=== PATIENT | male | born 1950 | race Hispanic/Latino ===

== ENCOUNTER 2017-12-31 07:39 | Day surgery (SDC) | payer MEDICARE, BC ==
[2017-12-25 15:03] VITALS: BMI 28.5
[2017-12-31 08:07] LABS: BASO # 0.03 K/mm3 (0.0-2.0); BASO % 0.5 % (0.0-3.0); EOS # 0.3 (0.0-0.7); EOS % 4.5 % (1.5-5.0); GRAN # 3.3 (1.4-6.5); GRAN % 59.8 % (50.0-68.0); HEMOGLOBIN 14.1 g/dL (14.0-18.0); LYMPH # 1.4 (1.2-3.4); LYMPH % 25.4 % (22.0-35.0); MEAN CELL VOLUME 88.1 fl (80.0-105.0); MEAN CORPUSCULAR HEMOGLOBIN 29.9 pg (25.0-35.0); MEAN CORPUSCULAR HGB CONC 33.9 g/dl (31.0-37.0); MEAN PLATELET VOLUME 10.8 fl (7.0-11.0); MONO # 0.5 (0.1-0.6); MONO % 9.8 % (1.0-6.0); RBC 4.72 10^6/uL (3.5-6.1); RED CELL DISTRIBUTION WIDTH 13.9 % (11.5-14.5); WHITE BLOOD COUNT 5.5 10^3/ul (4.5-11.0)
[2017-12-31 08:17] LABS: BLOOD UREA NITROGEN 17 mg/dL (7-21); CALCIUM 9.7 mg/dL (8.4-10.5); GFR AFRICAN-AMERICAN > 60; GFR NON-AFRICAN AMERICAN > 60
[2017-12-31] MEDS ORDERED: Lidocaine 2% Inj (20ml) ONE (08:47)
[2017-12-31] MEDS ORDERED: Iohexol 350mgl/ml 50 ML ONE (08:48)
[2017-12-31] MEDS ORDERED: Phenylephrine 10 mg/ml Inj ONE (08:48)
[2017-12-31] MEDS ORDERED: Iodixanol 320 MG/ML 100 ML BOTTLE IV ONE (08:49)
[2017-12-31] MEDS ORDERED: Iodixanol 320 MG/ML 200 ML BOTTLE IV ONE (08:49)
[2017-12-31 08:57] LABS: INR 1.04 (0.93-1.08)
[2017-12-31] MEDS ORDERED: Midazolam 2 MG/2 ML VIAL ONE ×2 (09:24→09:40)
[2017-12-31] MEDS ORDERED: Sodium Chloride 0.9% 1,000 ML IV SCH (10:00)
[2017-12-31 10:36] VITALS: RESP 20; TEMP 97.6
--- NOTE | 2017-12-31 11:21 | CARD ---
APPROVED REPORT EKG Measurement Heart [id number] <Conclusion> Sinus rhythm with marked sinus arrhythmia with premature atrial complexes Right bundle branch block Abnormal ECG
--- NOTE | 2017-12-31 12:20 | CARDCATH ---
PROCEDURE DATE: 12/31/2017 HISTORY: The patient is a 67-year-old male with multiple cardiac risk factors who presents with angina. A stress test was abnormal. The patient has had documented diffuse atherosclerosis in the past. PROCEDURE: Left heart catheterization with coronary arteriography and left ventriculogram. The right femoral artery was cannulated with a 6-[place] sheath. There were no complications. I performed moderate sedation which included the presence of an independent trained observer that assisted in monitoring the patient's level of consciousness and physiologic status. After administration of Versed and fentanyl, my intra-service time was 15 minutes. The findings on catheterization revealed a left ventricle that was mildly hypokinetic. Estimated ejection fraction is 45%-50%. His coronary anatomy revealed the left main artery was unremarkable. The LAD and diagonal vessels revealed diffuse atherosclerosis without critical lesions. The circumflex artery and obtuse marginal branches revealed diffuse atherosclerosis with an AV groove branch of 50%-60% stenosis. The right coronary artery was a dominant vessel and revealed diffuse atherosclerosis with a 50%-60% stenosis in the posterolateral branch. Angio-Seal was used to close the femoral artery site. The patient tolerated the procedure well. In summary, the procedure revealed a 50%-60% stenosis in the distal AV groove branch of circumflex artery as well as a 50%-60% stenosis in the posterolateral branch of the RCA. LV function was mildly hypokinetic with an EF of 45%-50%. Given these findings, the patient's treatment should be medical therapy. He needs to accelerate a cardiac risk reduction program which needs to include an exercise program. I have discussed this with him in detail. Tarun Gao MD
[2017-12-31 15:18] VITALS: O2SAT 95
[2017-12-31 15:20] VITALS: BP 146/89; PULSE 77
== END 2017-12-31 15:30 | disposition home or self-care (01) ==
LOC: CATH 07:39
PROVIDERS: ATTEND Internal Medicine Cardiovascular Disease
DX: I25.119 Atherosclerotic heart disease of native coronary artery with unspecified angina pectoris (principal); E78.00 Pure hypercholesterolemia, unspecified; I10 Essential (primary) hypertension
CPT/HCPCS: 36415; 80048; 85025; 85610; 85730; 86850; 86900; 93005; 93458; 99152; C1760; C1769; C2629; J1644; J2250; J3010; J7030; J7040; Q9966

== ENCOUNTER 2018-08-10 18:46 | Emergency (ER) | payer MEDICARE, BC ==
[2018-08-10 18:48] VITALS: BMI 27.1
--- NOTE | 2018-08-10 19:23 | ED PDOC ---
Arrival/HPI - General Chief Complaint: Cardiac Arrest Historian: Spouse, EMS - Critical Care Critical Care Minutes: Other (35 minutes) - History of Present Illness Narrative History of Present Illness (Text): 08/10/18 18:48 68 M with PMHx of hypertension brought in to the Emergency department by ambulance for cardiac arrest witnessed by , bystander performed CPR. As per , patient was driving when he pulled over to the side since he was not feeling well and that is when he went into cardiac arrest. states patient only complained of a headache earlier today while shopping, otherwise no other complaints. states pt has no cardiac history, but multiple family members have had "heart attacks". Patient arrived with IO in left tibia, in asystole, pupils were equal but were not reactive. Pt was given amiodarone in field and intubated. Rhythm check consistently asystole up until time of at 19:16. 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 since he was not feeling well) Past Medical History - Infectious Disease Hx of Infectious Diseases: None - Cardiac Hx Pacemaker: No - Pulmonary Hx Chronic Obstructive Pulmonary Disease (COPD): Yes - Neurological Hx Paralysis: No - Hematological/Oncological Hx Blood Transfusions: No Hx Blood Transfusion Reaction: No - Musculoskeletal/Rheumatological Hx Musculoskeletal Disorders: Yes (ARTHRITIS TO KNEES, NECK, BACK & WRISTS) - Psychiatric Hx Emotional Abuse: No Hx Physical Abuse: No Hx Substance Use: No - Surgical History Hx Cardiac Catheterization: Yes - Anesthesia Hx Anesthesia Reactions: No Hx Malignant Hyperthermia: No - Suicidal Assessment Feels Threatened In Home Enviroment: No Family/Social History Family/Social History: CAD/VT ( noted multiple family members have had cardiac arrests) Smoking Status: Never Smoked Hx Alcohol Use: Yes (SOCIALLY) Hx Substance Use: No Allergies/Home Meds Allergies/Adverse Reactions: Allergies No Known Allergies Allergy (Verified 12/25/17 14:56) Home Medications: Home Meds Medication Instructions Recorded Confirmed Montelukast [Singulair] 10 mg PO HS 11/17/14 12/31/17 Esomeprazole Magnesium [Nexium] 20 mg PO QAM 11/18/14 12/31/17 Desloratadine [Clarinex] 5 mg PO QAM 11/15/15 12/31/17 Fluticasone Nasal [Flonase] 2 spr NS DAILY 11/15/15 12/31/17 Tamsulosin [Flomax] 0.4 mg PO QPM 11/15/15 12/31/17 Mometasone/Formoterol [Dulera 100 2 inh IH BID 11/28/15 12/31/17 Mcg/5 Mcg Inhaler] Valsartan [Diovan] 80 mg PO QAM 06/26/16 12/31/17 Tiotropium [place] Inhaler 1 inhaler INH DAILY 10/22/16 12/31/17 [Spiriva Inhalation Handihaler Device] Cholecalciferol (Vitamin D3) 400 unit PO 1200 10/26/16 12/31/17 [Vitamin D-400] Multivit-Min/FA/Lycopen/Lutein 1 each PO DAILY 10/26/16 12/31/17 [Centrum Silver Tablet] Cope-3 Fatty Acids [Fish Oil] 400 mg PO DAILY 10/26/16 12/31/17 Ubidecarenone [Co Q-10] 200 mg PO DAILY 10/26/16 12/31/17 Rosuvastatin Calcium [Crestor] 10 mg PO HS 11/11/17 12/31/17 Review of Systems - Physician Review All systems were reviewed & negative as marked: Yes (unable obtain from patient) Physical Exam unobtainable due to cardiac arrest Finger Stick Blood Glucose: 145 - Systems Exam Head: Present: Atraumatic Pupils: Present: Other (pupils were equal but unreactive to light) Pharnyx: Present: Other (ET tube in place which was placed by medics) Nose (External): Present: Other (nasal trumpets are in both nostrils that were placed by ems) Respiratory/Chest: Present: Other (breath sounds were equal bilaterally with manual breaths) Cardiovascular: Present: Other (no spontaneous rhythm) Abdomen: Present: Other (soft) Lower Extremity: Present: Other (IO in the left proximal tibia) Neurological: Present: Other (no spontaneous movement) Skin: Present: Warm Medical Decision Making ED Course and Treatment: 08/10/18 18:48 Impression: 68 M brought in to the Emergency department by ambulance for cardiac arrest witnessed by , bystander performed CPR. Differential Diagnosis included but are not limited to: Plan: -- Reassess and disposition Prior Visits: Notes and results from previous visits were reviewed. Progress Notes: 08/10/18 19:20 cpr was continued from ems. all rhythm checks were consistent with asystole, bedside ultrasound showed cardiac standstill. cpr was terminated with the at bedside. the was given the opportunity to say her goodbye and offer her prayers. at this time am awaiting a call back from dr. barrientos. 08/10/18 19:54 case discussed with . njedrs started by myself. - Scribe Statement The provider has reviewed the documentation as recorded by the Scribe Trudy Reyesjh All medical record entries made by the Scribe were at my direction and personally dictated by me. I have reviewed the chart and agree that the record accurately reflects my personal performance of the history, physical exam, medical decision making, and the department course for this patient. I have also personally directed, reviewed, and agree with the discharge instructions and disposition. Disposition/Present on Arrival - Present on Arrival Any Indicators Present on Arrival: No History of DVT/PE: No History of Uncontrolled Diabetes: No Urinary Catheter: No History of Decub. Ulcer: No History Surgical Site Infection Following: None - Disposition Have Diagnosis and Disposition been Completed?: Yes Diagnosis: Cardiac arrest Disposition: WITH WITHOUT AUTOPSY Disposition Time: 19:16 Patient Problems: Current Active Problems Problem Status Onset Cardiac arrest Acute Condition: Forms: [employer] ([employer]i)
[2018-08-10 20:37] VITALS: TEMP 97
== END 2018-08-10 22:56 ==
LOC: ED 18:46
DX: I46.9 Cardiac arrest, cause unspecified (principal)